=== PATIENT | male | born 1995 | race Two or more races ===

== ENCOUNTER 2020-04-18 23:39 | Emergency (ER) | payer OTHER ==
[~2020-04-18] VITALS: Ht 177.8 cm; Wt 81.6 kg
== END 2020-04-19 05:43 | disposition home or self-care (01) ==
LOC: ER 23:39
DX: A08.4 Viral intestinal infection, unspecified (principal); B34.9 Viral infection, unspecified; Z03.818 Encounter for observation for suspected exposure to other biological agents ruled out

== ENCOUNTER 2025-02-19 08:05 | Emergency (ER) | payer OTHER ==
[~2025-02-19] VITALS: Ht 180.3 cm; Wt 88.5 kg
[2025-02-19] MEDS ORDERED: 0.9 % SODIUM CHLORIDE 1,000 ML IV ONE (09:00)
[2025-02-19] MEDS ORDERED: 0.9 % SODIUM CHLORIDE 1,000 ML IV SCH (09:00)
[2025-02-19] MEDS ORDERED: FAMOTIDINE/PF 20 MG in 0.9 % SODIUM CHLORIDE 8 ML IV PUSH ONE (09:00)
[2025-02-19] MEDS ORDERED: ACETAMINOPHEN 500 MG GEL..CAP PO ONE ×2 (09:00→09:26)
[2025-02-19] MEDS ORDERED: ONDANSETRON HCL 4 MG in 0.9 % SODIUM CHLORIDE 50 ML IV ONE (09:00)
[2025-02-19] MEDS ORDERED: ONDANSETRON HCL 2 MG/ML VIAL ONE (09:26)
[2025-02-19] MEDS ORDERED: FAMOTIDINE/PF 20 MG/2 ML VIAL ONE (09:27)
[2025-02-19 09:54] LABS: BASO % 0.4 % (0.1-1.2); EOS # 0.00 (0.04-0.54); EOS % 0.0 % (0.7-7.0); LYMPH # 0.69 (1.18-3.74); LYMPH % 26.3 % (19.3-53.1); MEAN PLATELET VOLUME 10.70 fl (9.4-12.4); MONO # 0.19 (0.24-0.82); MONO % 7.3 % (4.7-12.5); NEUT # 1.71 (1.56-6.13); NEUT % 65.2 % (34.0-71.1); RED CELL DISTRIBUTION WIDTH 11.9 % (11.6-14.4)
[2025-02-19 10:05] LABS: COVID-19 AG NEGATIVE (NEGATIVE)
[2025-02-19 10:15] LABS: INR 1.07
[2025-02-19 10:29] LABS: ALT/SGPT 84.0 U/L (12-78); AST/SGOT 65.0 U/L (15-37); BILIRUBIN TOTAL 0.27 mg/dL (0.3-1.2); BUN CREA RATIO 8.0 (7.0-25.0); CREATININE SERUM 1.05 mg/dL (0.70-1.30); GFR 82.93; GLOBULINA 3.4 G/DL (2.4-3.5); GLUCOSE FASTING 94.0 mg/dL (65-100); OSMOLALITY SERUM 266.0 MOSM/KG (275-295)
[2025-02-19 11:23] LABS: URINE APPEARANCE Clear; URINE BILIRRUBIN Negative (NEGATIVE); URINE BLOOD Negative; URINE COLOR Yellow; URINE GLUCOSE Negative (NEGATIVE); URINE KETONE 15 (NEGATIVE); URINE LEUKOCYTE Negative; URINE NITRATE Negative; URINE PROTEIN Negative (NEGATIVE); URINE UROBILINOGEN 0.2 E.U./dl
[2025-02-19 11:34] LABS: URINE BACTERIA 1.1 uL (0.0-1933); URINE CAST 0.00 uL (0.0-1.40); URINE EPITHELIAL CELLS 1.0 uL (0.0-38.8); URINE RBC 1.1 uL (0.0-20.8); URINE WBC 1.6 uL (0.0-23.2)
[2025-02-19] MEDS ORDERED: PEPCID AC20 MG PO (12:09)
[2025-02-19] MEDS ORDERED: INTESTINEX680 M1 PO (12:09)
[2025-02-19] MEDS ORDERED: DICY20TA PO (12:09)
== END 2025-02-19 12:31 | disposition home or self-care (01) ==
LOC: ER 08:05
PROVIDERS: General Practice
DX: B34.9 Viral infection, unspecified (principal); A08.4 Viral intestinal infection, unspecified; R50.9 Fever, unspecified; R51.9 Headache, unspecified; Z20.822 Contact with and (suspected) exposure to COVID-19